=== PATIENT | female | born 1935 | race Caucasian/White ===

== ENCOUNTER 2016-12-19 17:09 | Emergency (ER) | payer MEDICARE, MEDICAID ==
[~2016-12-19] VITALS: Ht 152.4 cm; Wt 70.5 kg
[~2016-12-19 17:09] MED LIST: ACET325T51 PO; ALBU2.5V4 NEB; ALBU8.5H2 INHALATION; ASPI-973 PO; BISA10SU61 RC; CARV12.5 PO; DETROL LA4 M1 PO; FURO-128 PO; LIP40 PO; LISI-571 PO; MAGN400O4 PO; MAGN400T23 PO; NA P133E23 RC; PRE20 PO; WARF4TAB6 PO; ZYL100 PO
[2016-12-19 17:13] VITALS: BP 132/86; PULSE 87; RESP 20; O2SAT 97
--- NOTE | 2016-12-19 19:29 | ED.REPORT ---
HPI-Abd Pain F 40 and Over Date of Service Dec 19, 2016 ED Provider: Riley Potter MD Pt is an 81 y/o female presenting to the ED c/o difficulty urinating onset 2 weeks ago. She reports that she has had to bear down significantly more in order to urinate recently. She has had a UTI previously with different symptoms (urinary frequency and urgency). Pt denies abdominal pain, fever, vomiting, dysuria, flank pain, urinary retention. She had an appointment scheduled with her PCP yesterday but a nurse from [facility] cancelled it. She incidentally notes constipation and requests a rx for a stool softener. Nursing Notes Stated Complaint: UTI SYMPTOMS Chief Complaint: Female Abdominal Pain Nursing Notes Reviewed: Yes Allergies: Coded Allergies: No Known Allergies (Verified Allergy, Unknown, 05/17/16) Scheduled Allopurinol (Allopurinol) 100 Mg Tablet 100 MG PO DAILY start in 5 days Aspirin (Aspirin) 81 Mg Tablet 81 MG PO DAILY Atorvastatin (Lipitor) 40 Mg Tablet 40 MG PO HS Carvedilol (Coreg) 12.5 Mg Tablet 12.5 MG PO BID with food Cephalexin (Keflex) 500 Mg Capsule 500 MG PO QID Furosemide (Lasix) 40 Mg Tablet 40 MG PO BID Lisinopril (Lisinopril) 5 Mg Tablet 5 MG PO DAILY Magnesium Oxide (Mag-Oxide) 400 Mg Tablet 400 MG PO DAILY Prednisone (PredniSONE) 20 Mg Tablet 40 MG PO DAILY Tolterodine Tartrate ER (Detrol LA) 4 Mg Cap.sr.24h 4 MG PO DAILY Warfarin Sodium (Warfarin Sodium) 4 Mg Tablet 4 MG PO DAILY Scheduled PRN Acetaminophen (Acetaminophen) 325 Mg Tablet 650 MG PO Q4H PRN PRN For Pain Albuterol HFA (Proair HFA) 8.5 Gm Hfa.aer.ad 2 PUFFS INHALATION Q4H PRN PRN For Shortness of Breath Albuterol Neb Soln (Albuterol Neb Soln) 2.5 Mg/3 Ml Vial.neb 5 MG NEB Q4H PRN PRN For Shortness of Breath Bisacodyl (Dulcolax Rectal) 10 Mg Supp.rect 10 MG RC DIRECTED PRN PRN For Constipation Docusate Sodium (Colace) 100 Mg Capsule 100 MG PO DAILY PRN PRN For Constipation Magnesium Hydroxide (Milk of Magnesia) 400 Mg/5 Ml Oral.susp 30 ML PO DIRECTED PRN PRN For Constipation Na Phos,M-B/Na Phos,Di-Ba (Fleet Enema) 133 Ml Enema 133 ML RC DIRECTED PRN PRN For Constipation General Time Seen by MD: 19:28 Chief Complaint Other (difficulty urinating) Hx Obtained From: Patient Arrived By: Walk-in Sudden in Onset?: No Onset Occurred: More than a week ago... (2 weeks) Symptom Duration: Since onset Progression since Onset: Unchanged Severity: Current: No pain currently Severity: Maximum: No pain Similar Sx Previous: No Past Medical History Past Medical History Notes: Senior Quality Assurance Specialist: Dr. Hutchinson DNR/DNI Past Medical History 1. Atrial fibrillation, on warfarin. 2. Congestive heart failure, ejection fraction 25% by echo December 2014. 3. 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 4. Coronary artery disease with history of stenting. 5. COPD. 6. Sick sinus syndrome, status post pacemaker on January 15, 2015. 7. Obstructive sleep apnea, not on treatment. 8. Diet-controlled diabetes mellitus with nephropathy (patient denies diabetes). 9. 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 10. Hypertension. 11. Hyperlipidemia. 12. Chronic back pain. 13. Depression and anxiety. 14. Osteoarthritis. Past Surgical History Tonsillectomy Appendectomy B/L tubal ligation Neck fusion Cardiac stents Single lead ventricular pacemaker implanted on January 15, 2015 Family History Noncontributory Smoking History Former Smoker Social History Alcohol Use: Denies alcohol use Drug Use: Denies drug use Other Social History: Good social support, Lives alone, Local resident Ambulatory Status Walker Review of Systems Constitutional: Denies: Chills, Fever Respiratory: Denies: Non-productive cough, Shortness of breath Cardiovascular: Denies: Chest pain, Dyspnea on exertion GI: Denies: Abdominal pain, Nausea, Vomiting Female: Reports: Urination decreased, Denies: Dysuria, Incontinence, Urinary frequency Musculoskeletal: Denies: Back pain, Lumbar pain Complete sys rev & neg: except as marked. Physical Exam Vital Signs Vital Signs (First) Date Time Temp Pulse Resp B/P Pulse Ox O2 Delivery O2 Flow Rate FiO2 12/19/16 17:13 37.2 87 20 132/86 97 Room Air Initial VS: Reviewed, Vital signs normal Head / Eyes: Atraumatic, Normocephalic, PERRL ENT: Mucous membranes moist, Conjunctiva normal, No scleral icterus Neck: Supple, Full range of motion Extremities: Vascular intact, Neuro intact, No swelling, No tenderness Skin: Warm, Dry, No cyanosis Neurologic: Alert, Oriented, Nonfocal Psychiatric: Mood/affect normal, Behavior normal, Normal thought content General/Constitutional: Awake, Alert, No acute distress, Cooperative, Not toxic appearing Respiratory / Chest: Atraumatic, Breath sounds NL, Breath sounds = bilat, No respiratory distress, No rales, No rhonchi, No wheezing, No retractions, No stridor, No chest tenderness, No chest wall deformity, No crepitus Cardiovascular: Heart rate NL, Regular rhythm, Heart sounds NL, No gallop, No murmurs, No rubs, Cap refill not delayed, Peripheral circulation NL Abdomen: Atraumatic, Soft, Non-tender, No guarding, No rebound, No distention, No palpable mass Back: Full range of motion, Painless range of motion, No CVA tenderness Interpretation & Diagnostics Lab Results Interpretation Test 12/19/16 18:10 12/19/16 20:13 Urine Color Yellow (YELLOW) Urine Appearance Slightly cloudy Urine pH 6.5 (5.0-8.0) Urine Specific [place] 1.010 (1.003-1.035) Urine Protein Negativemg/dL (NEG,TRACE) Urine Glucose (UA) Negativemg/dL (NEGATIVE) Urine Ketones Negativemg/dL (NEGATIVE) Urine Occult Blood Small (NEGATIVE) Urine Nitrite Negative (NEGATIVE) Urine Bilirubin Negative (NEGATIVE) Urine Urobilinogen Normalmg/dL (NORMAL) Urine Leukocyte Esterase Large (NEGATIVE) Urine RBC 0-2/hpf (0-2) Urine WBC >50/hpf (0-5) Urine Epithelial Cells Few/hpf (NONE-MOD) Urine Crystals None seen (NONE SEEN) Urine Bacteria Many/hpf (NONE-FEW) Urine Hyaline Casts None/lpf (NONE) Urine Granular Casts None seen (NONE SEEN) Urine Waxy Casts None seen (NONE SEEN) Urine Red Blood Cell Casts None seen (NONE SEEN) Urine White Blood Cell Casts None seen (NONE SEEN) Urine Mucus None seen (None Seen) Urine Trichomonas None seen (NONE SEEN) Urine Yeast None (NONE SEEN) Urinalysis Comment None Urine Culture Reflexed Indicated Hold Purple Top Tube Received (Received) Hold Blue Top Tube Received (Received) Hold Red Top Tube Received (Received) Hold [place] Top Tube Received (Received) Hold Lacey Top Tube Received (Received) Re-Eval/Medical Decision Med Decision/Clinical Course UTI. No sensory symptoms pyelonephritis. Vital signs are stable. Abdomen soft nontender. No CVA tenderness. Treatment with Keflex. First dose given here. Recommend follow-up with primary doctor in 2 days for reevaluation. Return precautions given. Patient also requested a stool softener and I gave her prescription for this. Re-Evaluation/Progress : Time of Eval: 19:58 Re-Evaluation/Progress Note: Pt rechecked. Informed pt of plan for treatment. Pt understands and agrees with plan for treatment. F/U instructions and RTER warnings given. All questions addressed. Counseled Regarding: Diagnosis, Lab results, Need for follow-up, When/why to return to ED Discharge & Departure Primary Impression: Urinary tract infection Urinary tract infection type: site unspecified Hematuria presence: without hematuria Qualified Code: N39.0 - Urinary tract infection, site not specified Additional Impression: Constipation Constipation type: unspecified constipation type Qualified Code: K59.00 - Constipation, unspecified Disposition: Home Discharge Condition All VS Reviewed: Yes Condition: Stable Patient Instructions: Urinary Tract Infection in Women (ED) Additional Instructions: Your urine shows sign of infection which is likely causing your symptoms. Take the antibiotics as prescribed. Use the stool softener as needed. Return to the emergency department if you are unable to urinate, you develop abdominal pain or low back pain, high fever, vomiting, or for other concerning symptoms. Follow-up with your primary care doctor next week. Referrals: Carolina Corley (PCP) Albert Attestation Portions of this note were transcribed by Rhys Shultz. I, Dr. Potter, personally performed the history, physical exam and medical decision-making; I reviewed and confirmed the accuracy of the information in the transcribed note. Signed by Albert Moore, 12/19/161999 copies to: Carolina Corley Ben M MD Dec 19, 2016 19:29 RHYS SHULTZ Dec 19, 2016 20:02
[2016-12-19 19:43] LABS: APPEARANCE,URINE SLIGHTLY CLOUDY (CLEAR,HAZY); COLOR,URINE YELLOW (YELLOW); OCCULT BLOOD,URINE SMALL (NEGATIVE); PH,URINE 6.5 (5.0-8.0); UROBILINOGEN,URINE NORMAL (NORMAL)
[2016-12-19] MEDS ORDERED: DOCU-41 PO (20:03)
[2016-12-19] MEDS ORDERED: CEPH-512 PO (20:03)
[2016-12-19 20:27] VITALS: BP 131/68; PULSE 78; RESP 17; O2SAT 98
== END 2016-12-19 20:27 | disposition home or self-care (01) ==
LOC: SED 17:09
DX: N39.0 Urinary tract infection, site not specified (principal); K59.00 Constipation, unspecified; B96.20 Unspecified Escherichia coli [E. coli] as the cause of diseases classified elsewhere; I11.0 Hypertensive heart disease with heart failure; E11.59 Type 2 diabetes mellitus with other circulatory complications; I50.9 Heart failure, unspecified; I25.10 Atherosclerotic heart disease of native coronary artery without angina pectoris; I48.91 Unspecified atrial fibrillation; I25.5 Ischemic cardiomyopathy; E11.21 Type 2 diabetes mellitus with diabetic nephropathy; J44.9 Chronic obstructive pulmonary disease, unspecified; I69.998 Other sequelae following unspecified cerebrovascular disease; R53.1 Weakness; Z79.82 Long term (current) use of aspirin; Z79.01 Long term (current) use of anticoagulants; Z87.891 Personal history of nicotine dependence